=== PATIENT | female | born 1970 | race Caucasian/White ===

== ENCOUNTER → 2017-04-19 | Day surgery (SDC) | payer OTHER ==
--- NOTE | 2017-04-21 16:12 | PATH ---
Surgical Pathology Report Patient Name: SELENA MARIA [facility]. Rec. #: [id number] /Age/Gender: 1970 (Age: 46) / F Account: [id number] Location: Taken: 04/19/2017 Received: 04/19/2017 Reported: 04/21/2017 Physicians: Amy Platt M.D. Specimen(s) Received RIGHT AXILLARY LYMPH NODE BX Clinical History Ultrasound findings: Suspicious Final Diagnosis LYMPH NODE, RIGHT AXILLA, CORE BIOPSY: BENIGN LYMPH NODE TISSUE. (SEE NOTE) Note: Cytokeratin (AE 1/3) immunostain, performed at [facility] is negative. This finding supports the diagnosis. Electronically Signed Justyna Mendoza M.D. Gross Description Received in formalin labeled "right axilla," is a 2.2 x 1.7 x 0.3 cm aggregate of multiple cordoba-yellow, irregular to cylindrical portions of fibroadipose tissue admixed with blood clot. The formalin is filtered and the specimen is entirely submitted in one cassette. Time to formalin fixation: 2 minutes Total formalin fixation time: Approximately 27 hours. 04/20/2017 saudi04/20/2017
== END | disposition home or self-care (01) ==
LOC: FRADUS-SUR 13:56
PROVIDERS: ATTEND Surgery
PROC: 07B53ZX Excision of Right Axillary Lymphatic, Percutaneous Approach, Diagnostic (ICD-10-PCS; principal; 2017-04-19)
PROC: BH47ZZZ Ultrasonography of Upper Extremity (ICD-10-PCS; 2017-04-19)
DX: R59.0 Localized enlarged lymph nodes (principal)
CPT/HCPCS: 19083; 88305-TC; 88342-TC

== ENCOUNTER 2018-12-28 10:43 | Emergency (ER) | payer SELFPAY ==
[2018-12-28 10:58] VITALS: BP 127/88; PULSE 96; TEMP 98.2; BMI 24.2
--- NOTE | 2018-12-28 11:14 | PDOC ---
History of Present Illness - General Chief Complaint: Vaginal Sxs Stated Complaint: PELVIC PAIN Time Seen by Provider: 12/28/18 11:01 History Source: Patient, [employer] Used (#[id number]) Exam Limitations: Clinical Condition - History of Present Illness Initial Comments: 12/28/18 12:37 Patient with history of HIV positive present with complaint of 3 day history of pelvic pain and yellow vaginal discharge with tactile fever and chills. Patient reported going to PCP office for symptoms and was advised by PCP to come to the ER. Patient reports tactile fevers for 3 days. Denies nausea, vomiting, chest pain, shortness of breath or weakness. Patient is sexually active with . LMP 2 years ago. Denies any other symptoms Timing/Duration: other (3 days) Past History - Past Medical History Allergies/Adverse Reactions: Allergies Allergy/AdvReac Type Severity Reaction Status Date / Time atovaquone [From Mepron] Allergy Rash Verified 12/28/18 13:20 sulfamethoxazole Allergy Rash Verified 12/28/18 13:20 [From Bactrim] trimethoprim [From Bactrim] Allergy Rash Verified 12/28/18 13:20 Home Medications: Ambulatory Orders Elviteg/Cob/Emtri/Tenof Alafen [Genvoya Tablet] 1 each PO DAILY #30 tablet 08/11 Atorvastatin Ca [Lipitor] 20 mg PO HS #30 tablet 10/31/18 Bictegrav/Emtricit/Tenofov Ala [Biktarvy 50-200-25 mg Tablet] 1 each PO DAILY # 30 tablet 12/07/18 Ciprofloxacin [Cipro (Restricted To Id)] 500 mg PO Q12H 5 Days #10 tablet Ibuprofen 800 mg PO Q8H PRN #20 tablet 12/28/18 Anemia: No Asthma: No Cancer: No Cardiac Disorders: No Diabetes: No HTN: No Liver Disease: No Seizures: No Thyroid Disease: No - Suicide/Smoking/Psychosocial Hx Smoking History: Unknown if ever smoked Have you smoked in the past 12 months: No Information on smoking cessation initiated: No Hx Alcohol Use: No Drug/Substance Use Hx: No Review of Systems - Review of Systems Able to Perform ROS?: Yes Is the patient limited Prydeinig proficient: No Constitutional: Yes: Symptoms Reported, Chills, Fever (tactile) HEENTM: No: Symptoms Reported Respiratory: Yes: Symptoms reported Cardiac (ROS): No: Symptoms Reported ABD/GI: Yes: Symptoms Reported, See HPI, Abdominal cramping (suprapubic). No: Abdominal Distended, Abd. Pain w/ defecation, Blood Streaked Bowels, Constipated , Diarrhea, Difficulty Swallowing, Nausea, Poor Appetite, Poor Fluid Intake, Rectal Bleeding, Vomiting, Indigestion, Tarry Stools, Other : Yes: Symptoms Reported, See HPI, Discharge, Frequency, Pain (pelvic and suprapubis). No: Burning, Dysuria, Flank Pain Musculoskeletal: No: Back Pain All Other Systems: Reviewed and Negative *Physical Exam - Vital Signs Last Vital Signs Temp Pulse Resp BP Pulse Ox 98.2 F 96 H 18 127/88 97 12/28/18 10:51 12/28/18 10:51 12/28/18 10:51 12/28/18 10:51 12/28/18 10:51 - Physical Exam Comments: 12/28/18 12:42 GENERAL: Well developed, well nourished. Awake and alert. No acute distress. NECK: Supple. Full ROM. CARDIOVASCULAR: Regular rate and rhythm. No murmurs, rubs, or gallops. Distal pulses are 2+ and symmetric. PULMONARY: No evidence of respiratory distress. Lungs clear to auscultation bilaterally. No wheezing, rales or rhonchi. ABDOMINAL: Soft. mild suprapubic tenderness. Non-distended. No rebound or guarding. No organomegaly. Normoactive bowel sounds. MUSCULOSKELETAL Normal range of motion at all joints. : small clear white non-malodorous discharge in vaginal vault. no visible lesions. no blood in vault. no CMT SKIN: Warm and dry. Normal capillary refill. No rashes. NEUROLOGICAL: Alert, awake, appropriate. Gait is normal without ataxia. PSYCHIATRIC: Cooperative. Good eye contact. Appropriate mood General Appearance: Yes: Nourished, Appropriately Dressed. No: Apparent Distress Medical Decision Making - Medical Decision Making 12/28/18 12:39 Patient with history of HIV positive present with complaint of 3 day history of pelvic pain and yellow vaginal discharge or chills. Patient reported going to PCP office for symptoms and was advised by PCP to come to the ER. Patient reports tactile fevers for 3 days. Denies nausea, vomiting, chest pain, shortness of breath or weakness. Patient is sexually active with . Denies any other symptoms Exam significant for mild suprapubic tenderness with white clear non-malodorous discharge in vaginal vault. No CVA tenderness on exam. No CVAT. Patient afebrile UA and urine GC lab ordered. Urine hCG lab ordered. genital Cx of discharge sent. Pelvic ultrasound ordered. Patient will be treated empirically with ceftriaxone and azithromycin pending GC results. dispo based on UA and pelvic US results 12/28/18 14:25 UA showed pos leukocytes. Pelvic US negative. Patient given ceftriaxone 250mg IM and Azithromycin 1g PO. Patient stable for discharge on 5 days cipro Abx and motrin for pain prn with [facility] follow-up. *DC/Admit/Observation/Transfer Diagnosis at time of Disposition: Suprapubic abdominal pain, Pelvic pain - Discharge Dispostion Disposition: HOME Condition at time of disposition: Stable Decision to Admit order: No - Prescriptions Prescriptions: Ciprofloxacin [Cipro (Restricted To Id)] 500 mg PO Q12H 5 Days #10 tablet Ibuprofen 800 mg PO Q8H PRN #20 tablet PRN Reason: pain - Referrals Referrals: Lauren Whiting MD [Staff Physician] - - Patient Instructions Printed Discharge Instructions: DI for Vaginal Discharge Additional Instructions: Your pelvic ultrasound was negative. Your urine shows bacteria.Take medications as prescribed. Follow-up with referred [facility] - Post Discharge Activity
[2018-12-28 12:08] LABS: HCG,QUALITATIVE URINE Negative; URINE APPEARANCE CLEAR; URINE BILIRUBIN NEGATIVE (NEGATIVE); URINE COLOR YELLOW; URINE GLUCOSE (UA) NEGATIVE (NEGATIVE); URINE KETONE NEGATIVE (NEGATIVE); URINE LEUK ESTERASE 1+ (NEGATIVE); URINE NITRITE NEGATIVE (NEGATIVE); URINE PROTEIN NEGATIVE (NEGATIVE); URINE UROBILINOGEN 0.2 mg/dL (0.2-1.0)
[2018-12-28] MEDS ORDERED: AZITHROMYCIN 500 MG TABLET PO ONE (12:45)
[2018-12-28 12:48] LABS: EPI CELLS 2.5 /HPF (0-5/HPF); URINE BACTERIA 19.6 /hpf (NEGATIVE); URINE CASTS 1.48 /lpf (0-8); URINE RBC 1.6 /hpf (0-4); URINE WBC 8.8 /hpf (0-5)
[2018-12-28] MEDS ORDERED: AZITHROMYCIN 500 MG TABLET ONE (13:04)
[2018-12-28] MEDS ORDERED: KETOROLAC TROMETHAMINE 30 MG/1 ML VIAL IM ONE (14:17)
[2018-12-28] MEDS ORDERED: KETOROLAC TROMETHAMINE 30 MG/1 ML VIAL ONE (14:22)
== END 2018-12-28 14:29 | disposition home or self-care (01) ==
LOC: JERFT 10:43
PROC: 3E03329 Introduction of Other Anti-infective into Peripheral Vein, Percutaneous Approach (ICD-10-PCS; principal; 2018-12-28)
PROC: 3E0333Z Introduction of Anti-inflammatory into Peripheral Vein, Percutaneous Approach (ICD-10-PCS; 2018-12-28)
DX: R10.2 Pelvic and perineal pain (principal); N39.0 Urinary tract infection, site not specified; B96.89 Other specified bacterial agents as the cause of diseases classified elsewhere
CPT/HCPCS: 36415; 76830-TC; 81003; 84703; 87070; 87077; 87186; 87205; 87491; 87591; 99282-25